=== PATIENT | female | born 1995 | race Caucasian/White ===

== ENCOUNTER 2018-10-01 09:19 | Emergency (ER) | payer MEDICAID ==
[~2018-10-01] VITALS: Ht 157.5 cm; Wt 81.0 kg
[~2018-10-01 09:19] MED LIST: ALBU6.7H INH; Benzocaine/Menth/Cetylpyrd Cl MM; GUAI5SYR3 PO; LEVO250T2 PO; P20 PO; PRED5TAB48 PO
[2018-10-01 11:43] VITALS: BP 138/74
== END 2018-10-01 11:45 | disposition home or self-care (01) ==
LOC: ER 09:19
DX: O26.891 Other specified pregnancy related conditions, first trimester (principal); R10.2 Pelvic and perineal pain; J45.909 Unspecified asthma, uncomplicated; Z3A.01 Less than 8 weeks gestation of pregnancy; W01.0XXA Fall on same level from slipping, tripping and stumbling without subsequent striking against object, initial encounter; Y93.9 Activity, unspecified; Y92.9 Unspecified place or not applicable
CPT/HCPCS: 36415; 76801; 84702; 99284

== ENCOUNTER 2018-11-09 00:32 | Emergency (ER) | payer MEDICAID ==
[~2018-11-09] VITALS: Ht 157.5 cm; Wt 81.0 kg
[2018-11-09 01:23] LABS: CLARITY URINE CLEAR (CLEAR); COLOR URINE YELLOW (YELLOW); KETONES URINE NEGATIVE (NEGATIVE); LEUKOCYTE ESTERASE URINE TRACE (NEGATIVE); NITRITE URINE NEGATIVE (NEGATIVE); OCCULT BLOOD URINE TRACE (NEGATIVE); PH URINE 7.5 (4.5-8.0); PROTEIN URINE NEGATIVE (NEGATIVE); SPECIFIC GRAVITY URINE 1.005 (1.005-1.030); UROBILINOGEN URINE 0.2 E.U./dL (0.2-1.0)
[2018-11-09 01:23] LABS: BASOPHILS % 0.5 % (0.0-2.0); EOSINOPHILS % 2.6 % (0.0-5.0); HEMATOCRIT. 37.4 % (36.0-48.0); HEMOGLOBIN. 12.8 g/dL (12.0-16.0); LYMPHOCYTES % 36.9 % (20.0-50.0); MEAN CORPUSCULAR HEMOGLOBIN 29.5 pg (28.0-32.0); MEAN CORPUSCULAR VOLUME 86.2 fL (81.0-99.0); MEAN PLATELET VOLUME 10.8 fl (7.4-10.4); MONOCYTES % 5.9 % (2.0-8.0); NEUTROPHILS % 54.1 % (40.0-76.0); PLATELET 227 x1000/uL (130-400); RED BLOOD CELL COUNT 4.34 mill/uL (4.2-5.4); RED CELL DISTRIBUTION WIDTH 12.6 % (11.6-14.6)
[2018-11-09 01:29] LABS: CHLORIDE 107 mEq/L (98-107)
[2018-11-09 01:53] LABS: B-HCG QUANTITATIVE 34780 mIU/mL (<3)
[2018-11-09 03:32] VITALS: BP 120/63
== END 2018-11-09 03:34 | disposition home or self-care (01) ==
LOC: ER 00:32
DX: O20.0 Threatened abortion (principal); O34.11 Maternal care for benign tumor of corpus uteri, first trimester; O26.891 Other specified pregnancy related conditions, first trimester; J45.909 Unspecified asthma, uncomplicated; Z98.890 Other specified postprocedural states; Z3A.12 12 weeks gestation of pregnancy
CPT/HCPCS: 36415; 76830; 76856; 81003; 81025; 84702; 86850; 86900; 99284

== ENCOUNTER 2018-12-26 18:54 | Emergency (ER) | payer MEDICAID ==
[~2018-12-26] VITALS: Ht 157.5 cm; Wt 83.0 kg
[2018-12-26 23:08] LABS: CLARITY URINE CLEAR (CLEAR); COLOR URINE YELLOW (YELLOW); KETONES URINE NEGATIVE (NEGATIVE); LEUKOCYTE ESTERASE URINE 1+ (NEGATIVE); NITRITE URINE NEGATIVE (NEGATIVE); OCCULT BLOOD URINE NEGATIVE (NEGATIVE); PH URINE 6.5 (4.5-8.0); PROTEIN URINE NEGATIVE (NEGATIVE)
[2018-12-26 23:40] VITALS: BP 120/64
== END 2018-12-27 00:49 | disposition home or self-care (01) ==
LOC: ER 19:21
DX: O26.892 Other specified pregnancy related conditions, second trimester (principal); R10.31 Right lower quadrant pain; R10.32 Left lower quadrant pain; R11.0 Nausea; O99.512 Diseases of the respiratory system complicating pregnancy, second trimester; J45.909 Unspecified asthma, uncomplicated; Z98.890 Other specified postprocedural states; Z79.899 Other long term (current) drug therapy; Z3A.20 20 weeks gestation of pregnancy
CPT/HCPCS: 76805; 81003; 81025; 99284

== ENCOUNTER 2019-01-22 17:47 | Observation (INO) | payer MEDICAID ==
[~2019-01-22] VITALS: Ht 157.5 cm; Wt 84.4 kg
[2019-01-22] MEDS ORDERED: PRENATAL VITAMINS (21:31)
== END 2019-01-22 22:00 | disposition home or self-care (01) ==
LOC: 8 EST LDRP 17:47
PROVIDERS: ADMIT Obstetrics & Gynecology; ATTEND Obstetrics & Gynecology
DX: O36.8120 Decreased fetal movements, second trimester, not applicable or unspecified (principal); Z3A.23 23 weeks gestation of pregnancy
CPT/HCPCS: 76805; 76818; 99281; G0378

== ENCOUNTER 2019-04-03 15:12 | Observation (INO) | payer MEDICAID ==
[~2019-04-03 15:12] MED LIST changes: -ALBU6.7H INH; -Benzocaine/Menth/Cetylpyrd Cl MM; -GUAI5SYR3 PO; -LEVO250T2 PO; -P20 PO; -PRED5TAB48 PO; +PRENATAL VITAMINS
== END 2019-04-03 16:45 | disposition home or self-care (01) ==
LOC: 8 EST LDRP 15:12
PROVIDERS: ADMIT Obstetrics & Gynecology; ATTEND Obstetrics & Gynecology
DX: O24.410 Gestational diabetes mellitus in pregnancy, diet controlled (principal); Z3A.32 32 weeks gestation of pregnancy
CPT/HCPCS: 99281; G0378

== ENCOUNTER 2021-08-12 04:30 | Emergency (ER) | payer MEDICAID ==
[~2021-08-12] VITALS: Ht 157.5 cm; Wt 89.0 kg
[2021-08-12 06:56] VITALS: BP 112/85
== END 2021-08-12 06:56 | disposition home or self-care (01) ==
LOC: ER 04:30
DX: T16.1XXA Foreign body in right ear, initial encounter (principal); X58.XXXA Exposure to other specified factors, initial encounter; J45.909 Unspecified asthma, uncomplicated; Z98.890 Other specified postprocedural states
CPT/HCPCS: 81025; 99282